=== PATIENT | male | born 1980 | race Caucasian/White ===

== ENCOUNTER → 2017-02-17 | Outpatient (REF) | payer OTHER ==
[2017-02-17 12:59] LABS: ALKALINE PHOSPHATASE 67 U/L (45-117); ALT/SGPT 81 U/L (12-78); ANION GAP 8 MEQ/L (8-16); AST/SGOT 28 U/L (15-37); BILIRUBIN,TOTAL 0.5 MG/DL (0.2-1.0); BLOOD UREA NITROGEN 15 MG/DL (7-18); CALCIUM LEVEL 8.8 MG/DL (8.5-10.1); CARBON DIOXIDE LEVEL 28 MEQ/L (21-32); CHLORIDE LEVEL 103 MEQ/L (98-107); CREATININE FOR GFR 1.05 MG/DL (0.70-1.30); GLOMERULAR FILTRATION RATE > 60.0 (>60); GLUCOSE, FASTING 82 MG/DL (70-105); SODIUM LEVEL 139 MEQ/L (136-145); TRIGLYCERIDES LEVEL 205 MG/DL (<150)
[2017-02-17 13:00] LABS: ALBUMIN/GLOBULIN RATIO 1.43 (1.00-1.93); CHOLESTEROL LEVEL 190 MG/DL (<200); TOTAL PROTEIN 6.8 GM/DL (6.4-8.2)
== END ==
LOC: M SFHCCLAY 09:09
PROVIDERS: ATTEND Nurse Practitioner
DX: Z83.3 Family history of diabetes mellitus (principal)

== ENCOUNTER 2018-05-28 07:13 | Day surgery (SDC) | payer BC, OTHER ==
[~2018-05-28] VITALS: Ht 167.6 cm; Wt 89.8 kg
[~2018-05-28 07:13] MED LIST: NS 1,000 ML IV ONE; PROPOFOL 200 MG/20 ML VIAL As Ordered ONE
--- NOTE | 2018-05-28 08:31 | ROOR ---
Patient Name: Jonny Khoury Procedure Date: 05/28/2018 8:08 AM Date of : 1980 Age: 38 Room: [facility] Gender: Male Note Status: Finalized Procedure: Total Colonoscopy to Cecum + ileoscopy Indications: Rectal bleeding, Exclusion of Crohn's disease Providers: Everardo Zhang MD Referring MD: LARISSA VILLAREAL DO Requesting Provider: Medicines: Monitored Anesthesia Care Complications: No immediate complications. Procedure: Pre-Anesthesia Assessment: - The heart rate, respiratory rate, oxygen saturations, blood pressure, adequacy of pulmonary ventilation, and response to care were monitored throughout the procedure. The Colonoscope was introduced through the anus and advanced to the terminal ileum, with identification of the appendiceal orifice and IC valve. The colonoscopy was performed without difficulty. The patient tolerated the procedure well. The quality of the bowel preparation was excellent. Findings: The perianal and digital rectal examinations were normal. Non-bleeding internal hemorrhoids were found during retroflexion. The hemorrhoids were small and Grade I (internal hemorrhoids that do not prolapse). No other significant abnormalities were identified in a careful examination of the remainder of the colon. The terminal ileum appeared normal. The exam was otherwise without abnormality on direct and retroflexion views. Impression: - Non-bleeding internal hemorrhoids. - The examined portion of the ileum was normal. - The examination was otherwise normal on direct and retroflexion views. - No specimens collected. - Otherwise normal to terminal ileum. Recommendation: - Patient has a contact number available for emergencies. The signs and symptoms of potential delayed complications were discussed with the patient. Return to normal activities tomorrow. Written discharge instructions were provided to the patient. - High fiber diet. - Discharge patient to home. - Continue present medications. - Repeat colonoscopy at age 50 for screening purposes. - Return to referring physician. - The findings and recommendations were discussed with the patient's family. Everardo Zhang MD Everardo Zhang MD 05/28/2018 8:31:40 AM This report has been signed electronically. Number of Addenda: 0 Note Initiated On: 05/28/2018 8:08 AM Estimated Blood Loss: Estimated blood loss: none.
[2018-05-28 08:45] VITALS: BP 109/54
== END 2018-05-28 09:03 | disposition home or self-care (01) ==
LOC: M OPP 07:13
PROVIDERS: ATTEND Internal Medicine Gastroenterology
DX: K62.5 Hemorrhage of anus and rectum (principal); K60.2 Anal fissure, unspecified; K64.0 First degree hemorrhoids; G47.30 Sleep apnea, unspecified

== ENCOUNTER → 2024-11-23 | Outpatient (CLI) | payer OTHER | LOC: M RAD 08:30 | PROVIDERS: ATTEND Registered Nurse | DX: M75.02 Adhesive capsulitis of left shoulder (principal); M77.12 Lateral epicondylitis, left elbow ==

== ENCOUNTER → 2024-12-02 | Outpatient (CLI) | payer OTHER | LOC: M WUC 13:19 | PROVIDERS: ATTEND Psychiatry & Neurology Psychiatry | DX: M77.12 Lateral epicondylitis, left elbow (principal); M12.512 Traumatic arthropathy, left shoulder; M75.32 Calcific tendinitis of left shoulder ==